=== PATIENT | female | born 1960 | race Caucasian/White ===

== ENCOUNTER 2023-07-08 12:15 | Emergency (ER) | payer OTHER, BC ==
[~2023-07-08] VITALS: Ht 162.6 cm; Wt 95.3 kg
[2023-07-08] MEDS ORDERED: HYDR-3490 PO (12:39)
[2023-07-08] MEDS ORDERED: ATEN100T PO (12:39)
[2023-07-08 15:02] VITALS: BP 139/82; TEMP 97.1; O2SAT 100
== END 2023-07-08 16:30 | disposition home or self-care (01) ==
LOC: EDBD 12:15 → M ED 12:15
DX: S01.01XA Laceration without foreign body of scalp, initial encounter (principal); W00.0XXA Fall on same level due to ice and snow, initial encounter; I10 Essential (primary) hypertension; Y92.22 Religious institution as the place of occurrence of the external cause; Y93.89 Activity, other specified; Y99.9 Unspecified external cause status; Z88.1 Allergy status to other antibiotic agents; Z79.899 Other long term (current) drug therapy